=== PATIENT | female | born 1995 | race Caucasian/White ===

== ENCOUNTER 2016-06-05 23:53 | Emergency (ER) | payer BC ==
[~2016-06-05] VITALS: Ht 165.1 cm; Wt 90.9 kg
[2016-06-06] VITALS: TEMP 99.2
[2016-06-06] MEDS ORDERED: PAXIL 30MG30 MG PO (00:21)
[2016-06-06 01:41] LABS: BASO % 0.4 % (0.0-2.0); EOS # 0.1 (0.0-0.7); EOS % 0.6 % (0-4.0); GRAN # 5.6 (1.4-6.5); GRAN % 67.3 % (42.2-75.2); HEMATOCRIT 41.3 % (35.0-45.0); HEMOGLOBIN 13.5 g/dl (12.0-15.0); MEAN CELL VOLUME 86 fl (80.0-95.0); MEAN CORPUSCULAR HEMOGLOBIN 28 pg (26.0-32.0); MEAN CORPUSCULAR HGB CONC 33 g/dl (33.0-37.0); MEAN PLATELET VOLUME 11.3 fl (7.4-10.4); MONO # 0.6 (0.1-0.6); MONO % 7.5 % (1.7-9.3); PLATELET COUNT 237 K/mm3 (130-400); RED BLOOD COUNT 4.82 M/mm3 (4.10-5.30); REDCELL DISTRIBUTION WIDTH-CV 11.9 % (11.5-14.5); WHITE BLOOD COUNT 8.3 K/mm3 (4.8-10.8)
[2016-06-06 01:54] LABS: ADJUSTED CALCIUM 8.9 mg/dL (8.4-10.2); ALANINE AMINOTRANSFERASE 36 U/L (9-52); ALBUMIN 5.3 gm/dL (3.5-5.0); ALKALINE PHOSPHATASE 91 U/L (50-136); ANION GAP 19 mmol/L (7-16); BILIRUBIN,TOTAL 0.6 mg/dL (0.0-1.0); BLOOD UREA NITROGEN 15 mg/dL (7-17); CALCIUM 9.9 mg/dL (8.4-10.2); CARBON DIOXIDE 24 mmol/L (22-30); CHLORIDE 102 mmol/L (98-107); CREATININE, serum 0.84 mg/dL (0.52-1.25); GLUCOSE 87 mg/dL (74-106); POTASSIUM 3.9 mmol/L (3.4-5.0); SODIUM 145 mmol/L (137-145); TOTAL PROTEIN 9.5 gm/dL (6.4-8.2)
[2016-06-06 02:06] LABS: ACETAMINOPHEN < 10 ug/mL (10-30); SALICYLATE < 1.0 mg/dL
[2016-06-06 02:16] LABS: AMPHETAMINE URINE NEGATIVE; BARBITURATES URINE NEGATIVE; BENZODIAZEPINES URINE NEGATIVE; BUPRENORPHINE URINE NEGATIVE; METHADONE URINE NEGATIVE; OPIATES URINE NEGATIVE; OXYCODONE URINE NEGATIVE; PHENCYCLIDINE URINE NEGATIVE; PROPOXYPHENE URINE NEGATIVE; THC CANNABINOIDS URINE NEGATIVE
[2016-06-06 04:32] VITALS: BP 136/80; PULSE 68
== END 2016-06-06 04:33 | disposition home or self-care (01) ==
LOC: COL.ER 23:53
PROVIDERS: Emergency Medicine
DX: F32.9 Major depressive disorder, single episode, unspecified (principal); R45.851 Suicidal ideations

== ENCOUNTER → 2016-09-18 | Outpatient (CLI) | payer BC ==
[~2016-09-18] MED LIST: PAXIL 30MG30 MG PO
== END ==
LOC: BHSO 11:00
DX: F33.1 Major depressive disorder, recurrent, moderate (principal)
CPT/HCPCS: 90791-AI

== ENCOUNTER → 2016-10-31 | Outpatient (CLI) | payer BC | LOC: BHSO 09:01 | DX: F41.1 Generalized anxiety disorder (principal) ==

== ENCOUNTER → 2016-12-21 | Outpatient (CLI) | payer BC | LOC: BHSO 15:17 | DX: F41.1 Generalized anxiety disorder (principal) ==

== ENCOUNTER → 2017-03-27 | Outpatient (CLI) | payer BC | LOC: BHSO 10:17 | DX: F41.1 Generalized anxiety disorder (principal) ==